=== PATIENT | male | born 1945 | race Caucasian/White ===

== ENCOUNTER 2016-12-06 07:30 | Day surgery (SDC) | payer MEDICARE, OTHER ==
[~2016-12-06] VITALS: Ht 182.9 cm; Wt 124.7 kg
[~2016-12-06 07:30] MED LIST: ALFA1TAB4 PO; ASCO-294 PO; ASPI-973 PO; CALC1TAB23 PO; CHOL5000 PO; LEVO25TA5 PO; LOSA50TA37 PO; METF500T4 PO; OMEG10005 PO; OXYC1TAB24 PO; PANT20TA2 PO; PRAV40TA PO; RED600CA2 PO; Sodium Chloride LOK Flush 10 mL Syringe IV PRN; UBID400C6 PO; fentaNYL-PF 50 mCg/mL 2 mL Inj IVPUSH PRN
[2016-12-06] MEDS ORDERED: fentaNYL-PF 50 mCg/mL 2 mL Inj ONE (07:31)
[2016-12-06] MEDS ORDERED: Propofol 10,000 mCg/mL 20 mL Inj ONE (07:31)
[2016-12-06 08:30] VITALS: BP 143/89; PULSE 80; RESP 16; O2SAT 97
[2016-12-06] MEDS ORDERED: Lactated Ringer's 1,000 ML IV ONE (08:47)
[2016-12-06 09:44] VITALS: BP 131/78; PULSE 77; RESP 14; O2SAT 95
[2016-12-06 09:54] VITALS: BP 131/78; PULSE 74; RESP 16; O2SAT 94
[2016-12-06 10:03] VITALS: BP 137/85; PULSE 71; RESP 16; O2SAT 93
--- NOTE | 2016-12-06 10:24 | PCM.HPANE ---
Patient Data Surgeon Admitting Provider: Attending Provider:Eliseo Land MD Primary Care Physician:Eliseo Whitehead DO Other Provider: Reason for Visit Healthcare Maintenance Ht/WT & BMI Body Mass Index Allergies Coded Allergies: atorvastatin (Verified Allergy, Unknown, 12/05/16) STOMACH PROBLEMS fenofibrate (Verified Allergy, Unknown, 12/05/16) MYALGIA gemfibrozil (Verified Allergy, Unknown, 12/05/16) MYALGIA niacin (Verified Allergy, Unknown, 12/05/16) ANXIETY rosuvastatin (Verified Allergy, Unknown, 12/05/16) STOMACH PROBLEMS Past Anesthesia History Anesthesia History: Denies:: Abnormal Airway, Anesthesia Reactions, Difficult Intubation, Fam Anesthesia Reaction, Fam Malignant Hypertherm, Malignant Hyperthermia Medications Reported Medications Cholecalciferol (Vitamin D3) (Vitamin D3)5,000 Unit Capsule5,000 Unit PO WEEKLY 12/05/16 Ascorbate Calcium (Vitamin C)500 Mg Tqqmnr987 Mg PO DAILY 12/05/16 Red Yeast Rice 600 Mg Uvmgrgd890 Mg PO DAILY 12/05/16 Pravastatin 40 Mg Pfjbmj27 Mg PO DAILY Ref 0 12/05/16 oxyCODONE-Acetaminophen 5-325 mg 1 Each Tablet1-2 Tab PO Q6H PRN For Pain Ref 0 12/05/16 Calcium Carbonate/Vitamin D3 (Os-Champ 500+D3 Caplet)500 Mg-600 Tablet1 Each PO DAILY 12/05/16 [place]-3 Fatty Acids ([place]-3)1,000 Mg Capsule1,000 Mg PO BID 12/05/16 Metformin 500 Mg Fzczjo595 Mg PO TID Ref 0 12/05/16 Losartan Potassium 50 Mg Yqfgna29 Mg PO BID 12/05/16 Levothyroxine 25 Mcg Vckjky28 Mcg PO DAILY Ref 0 12/05/16 Ubidecarenone (Co Q-10)400 Mg Gotwelr619 Mg PO 12/05/16 Aspirin 81 Mg Fjclsm19 Mg PO DAILY Ref 0 12/05/16 [place] 250 Mg Sbfbqj446 Mg PO BID 12/05/16 Discontinued Reported Medications Pantoprazole DR 20 Mg Tablet.dr20 Mg PO DAILY Ref 0 12/05/16 History History of ENT Problems?: No HEENT History: Denies:: Abnormal Airway Cataracts Difficult Intubation Dysphagia Glaucoma Hearing Problem Sinus Problem TMJ Denture Type: None Teeth Condition: Within Normal Limits Hx of Heart Problems?: Yes Cardiovascular History: Positive for:: Hypertension Valvular Heart Disease Hx of Respiratory Problem?: No Respiratory History: Denies:: Asthma COPD Chest Surgery Cough Dyspnea Emphysema Hemoptysis Oxygen Administration Pneumonia Pulmonary Embolism Tuberculosis Use of C-PAP Machine Use of Inhalers / NEBS Hx Neurologic Problems?: No Hx of GI Problems?: Yes Gastrointestinal History: Positive for:: Gastroesphageal Reflux Hx of Problems?: No HX of Peritoneal Dialysis: No Hx Musculoskeletal Problems?: No Hx Surgeries?: Yes Stop/Bang Risk Assessment Category Category 1A: Patient has history of documented sleep apnea, and HAS NOT received any narcotic, sedative or anesthesia administration during this stay. Category 1B: Patient has history of documented sleep apnea, and HAS received any narcotic , sedative or anesthesia administration during this stay Category 2: Patient has SUSPECTED Obstructive Sleep Apnea, and HAS received any narcotic , sedative or anesthesia administration during this stay. Category 3: Patient has SUSPECTED Obstructive Sleep Apnea and HAS NOT received narcotic, sedative or anesthesia administration during this stay. Category 4: Outpatient in Procedural Areas with known sleep apnea or who screen positive for High Risk via the STOP/BANG questionnaire. Exam Exam General Appearance: Alert, Oriented X3, Cooperative, No Acute Distress HEENT/AIRWAY: MP 3 Lungs: Clear to Auscultation Heart: Exam Unremarkable Plan Impression Patient chart reviewed, patient interviewed and anesthestic plan with risks, benefits, and alternatives discussed, and informed consent obtained. ASA Physical Status: ASA2 Mod Systemic Disease Anesthetic Plan: MAC Bene/Risks/Altern/Consents: Yes HP Complete Prior to Induction: Yes Alejandro Matthews MD Dec 06, 2016 07:18
--- NOTE | 2016-12-06 10:39 | ENDO ---
[address] [address] ENDOSCOPY PROCEDURE PATIENT: MARK ESTRADA : 1945 MR#: [id number] ADMIT: 12/06/2016 JOB ID: [id number] DATE: 12/06/2016 TYPE OF OPERATION: Colonoscopy. PREOPERATIVE DIAGNOSIS(ES): Colorectal cancer. POSTOPERATIVE DIAGNOSIS(ES): Normal colonoscopy. ANESTHESIA: Monitored anesthesia care. COMPLICATIONS: None. BLOOD LOSS: Minimal. DESCRIPTION OF PROCEDURE: After risks and benefits were explained to the patient, informed consent was obtained. After anesthesia administered, a colonoscope was inserted from rectum to the cecum. Mucosa carefully examined. Prep of the patient was excellent. After procedure was done, the scope withdrawn and procedure terminated. FINDINGS: Upon inspection of the anus, no masses, hemorrhoids, ulcers, or fissures that were seen. Throughout the entire examination, there were no polyps, masses or lesions. Retroflexion was normal. IMPRESSION: Normal colonoscopy. RECOMMENDATION: Repeat colonoscopy 10 years for colorectal cancer screening.
--- NOTE | 2016-12-06 11:57 | PCM.ANEP1 ---
Post Anesthesia PACU Phase 1 Assessment Vital Signs Vital Signs Date Time Temp Pulse Resp B/P Pulse Ox O2 Delivery O2 Flow Rate FiO2 12/06/16 10:03 71 16 137/85 93 Room Air 12/06/16 09:54 74 16 131/78 94 Room Air 12/06/16 09:44 36.6 77 14 131/78 95 Room Air 12/06/16 08:30 36.7 80 16 143/89 97 Room Air Anesthetic Administered: MAC Level of Alertness: Awake, talking LIANG's with Equal Strength: Yes Pain: No Nausea or Vomiting: No CV Function & Hydration Stable: Yes Airway Device: Oxygen Delivery: Room Air Lungs: Clear to Auscultation Dermatome Level: Full Sensation PACU Phase 2 Assessment Complications: Yes Patient Instructions Provided: N/A Alejandro Matthews MD Dec 06, 2016 11:57
== END 2016-12-06 23:59 | disposition home or self-care (01) ==
LOC: END 07:30
PROVIDERS: ATTEND Internal Medicine Gastroenterology
DX: Z12.11 Encounter for screening for malignant neoplasm of colon (principal); I10 Essential (primary) hypertension; E78.5 Hyperlipidemia, unspecified; I35.0 Nonrheumatic aortic (valve) stenosis; E11.9 Type 2 diabetes mellitus without complications; M54.5 Low back pain; M19.90 Unspecified osteoarthritis, unspecified site; Z87.11 Personal history of peptic ulcer disease; Z85.46 Personal history of malignant neoplasm of prostate; Z79.84 Long term (current) use of oral hypoglycemic drugs; Z79.82 Long term (current) use of aspirin; K21.9 Gastro-esophageal reflux disease without esophagitis
CPT/HCPCS: G0121; J3010; J7120